=== PATIENT | male | born 1950 | race Caucasian/White ===

== ENCOUNTER 2020-08-29 12:29 | Emergency (ER) | payer MEDICARE ==
[2020-08-29] MEDS ORDERED: ATROPINE ABBOJECT 0.5 MG/5 ML SYRINGE IVP STA (13:02)
--- NOTE | 2020-08-29 13:02 | ED Physician Documentation ---
PD HPI CHEST PAIN - Stated complaint Stated Complaint: LOW HR - Chief complaint Chief Complaint: Cardiac - History obtained from History obtained from: Patient - Additional information Additional information: Early Thursday morning, 2 days ago he woke up and felt sweaty and a little short of breath. Subsequently had fatigue. The day prior he was hiking and doing everything without issue. He has a history of mild bradycardia but he noticed that his pulse was even lower than usual. He has not been had any chest pain but he does have fatigue and shortness of breath with exertion. He is not on an y rate lowering medications, his only prescriptions are atorvastatin and amlodipine. Review of Systems Ten Systems: 10 systems reviewed and negative Constitutional: reports: Fatigue. denies: Fever, Chills Cardiac: denies: Palpitations Respiratory: reports: Dyspnea. denies: Cough GI: denies: Abdominal Pain, Nausea, Vomiting PD PAST MEDICAL HISTORY - Allergies Allergies/Adverse Reactions: Allergies Allergy/AdvReac Type Severity Reaction Status Date / Time No Known Drug Allergies Allergy Verified 08/29/20 12:50 PD ED PE NORMAL - Vitals Vital signs reviewed: Yes - General General: Alert and oriented X 3, No acute distress - HEENT HEENT: PERRL, EOMI - Neck Neck: Supple, no meningeal sign, No bony TTP - Cardiac Cardiac: No murmur, Other (Very bradycardic) - Respiratory Respiratory: No respiratory distress, Clear bilaterally - Abdomen Abdomen: Non tender - Back Back: No CVA TTP, No spinal TTP - Derm Derm: Normal color, Warm and dry - Extremities Extremities: No edema, No calf tenderness / cord - Neuro Neuro: Alert and oriented X 3, Normal speech Results - Vitals Vitals: Vital Signs - 24 hr 08/29/20 08/29/20 08/29/20 12:42 13:00 13:13 Temperature 36.4 C L 36.8 C Heart Rate 31 L 31 L 32 L Respiratory 18 18 12 Rate Blood Pressure 148/70 H 155/73 H 152/70 H O2 Saturation 98 95 95 08/29/20 08/29/20 08/29/20 13:23 13:57 14:00 Temperature Heart Rate 30 L 30 L 30 L Respiratory 18 22 22 Rate Blood Pressure 129/72 141/73 H 141/73 H O2 Saturation 95 96 96 08/29/20 08/29/20 08/29/20 14:30 16:25 16:40 Temperature Heart Rate 28 L 75 37 L Respiratory 14 14 16 Rate Blood Pressure 134/93 H 130/70 126/63 O2 Saturation 99 97 96 08/29/20 08/29/20 17:00 17:30 Temperature Heart Rate 36 L 32 L Respiratory 18 18 Rate Blood Pressure 128/60 128/58 L O2 Saturation 93 94 Oxygen O2 Source Room air - EKG (time done) 1245 Rate: Rate (enter#) (31) Rhythm: Sinus bradycardia Intervals: Prolonged [place] Ischemia: ST depression 1713 Rate: Rate (enter#) (36) Rhythm: Other (complete AV block) Intervals: LBBB Computer interpretation: Agree with computer - Labs Labs: Laboratory Tests 08/29/20 08/29/20 08/29/20 12:51 12:51 12:51 WBC 8.7 RBC 5.29 Hgb 15.9 Hct 49.0 MCV 92.6 MCH 30.1 MCHC 32.4 RDW 13.2 Plt Count 203 MPV 11.7 H Neut # (Auto) 5.5 Lymph # (Auto) 2.5 [place] # (Auto) 0.7 Eos # (Auto) 0.0 Baso # (Auto) 0.0 Absolute Nucleated RBC 0.00 Nucleated RBC % 0.0 Sodium 142 Potassium 4.1 Chloride 106 Carbon Dioxide 25 Anion Gap 11.0 BUN 11 Creatinine 0.9 Estimated GFR (MDRD) 84 L Glucose 116 H Calcium 9.6 Total Bilirubin 1.8 H AST 22 ALT 33 Alkaline Phosphatase 71 Troponin I High Sens 31.6 H* B-Natriuretic Peptide Total Protein 8.0 Albumin 4.7 Globulin 3.3 Albumin/Globulin Ratio 1.4 Lipase 32 08/29/20 08/29/20 12:51 17:19 WBC RBC Hgb Hct MCV MCH MCHC RDW Plt Count MPV Neut # (Auto) Lymph # (Auto) [place] # (Auto) Eos # (Auto) Baso # (Auto) Absolute Nucleated RBC Nucleated RBC % Sodium Potassium Chloride Carbon Dioxide Anion Gap BUN Creatinine Estimated GFR (MDRD) Glucose Calcium Total Bilirubin AST ALT Alkaline Phosphatase Troponin I High Sens 26.0 H* B-Natriuretic Peptide 433 H Total Protein Albumin Globulin Albumin/Globulin Ratio Lipase - Rads (name of study) 1v chest Radiology: EMP read contemporaneously (Cardiomegaly without acute disease) PD MEDICAL DECISION MAKING - ED course ED course: 69-year-old gentleman presents with symptomatic bradycardia. Atropine briefly brought his heart rate up to 35 but then it settled back at 29-31. He is hemodynamically stable. Mentation is normal. Spoke with Dr. Saucedo at [facility] for transfer to a higher level of care. Dr. Saucedo called me, they couldn't find a bed at [facility]. The hospitalist at [facility] said he would accept but I needed to talk to their press loader first. Dr. Cano he was called at 3:11 PM. Spoke with the on-call press loader at [facility], Dr. Cano at 3:20 PM and he will see in consult but defers to the hospitalist for admit and [facility] was called back to arrange. Per Dr. Saucedo at [facility] he is excepted by Dr. Tan to [facility] and cobras were completed at 3:28 PM. Subsequently around 3:45 PM started developed significant pauses with about 6 to 8 seconds. He did become dizzy but not syncopal with these. Pacer pads were placed and a dopamine drip was begun. His heart rate responded up to about 40 with 10 mics per kilo per minute of dopamine. Notified there would be a delay to transfer because of lack of beds, reportedly there is a lack of beds up and down the [facility] corridor. Notified around 5:10 PM patient was feeling worse, nauseous and stewart. Another palmer EKG was ordered, it has changed a bit since the first 1, now complete heart block, but the rate is not too bad at 36. It was faxed to the press loader. Given the delays and potential for decompensation, I called the ER at [facility] and he was excepted there by Dr. Castañeda and cobras were completed. He will go via [facility] given the potential for hemodynamic decompensation and shock. - Critical Care Time(min): 40 Time Includes: Direct patient care, Review records, Reassess patient, Document care, Coordinate care, Medical consult, Family consult for tx dec Data interpretation: Labs, Pulse ox Procedures excluded from critical care time: EKG Departure - Departure Disposition: 02 Transfer Acute Care Hosp Clinical Impression: Symptomatic bradycardia Condition: Serious
[2020-08-29 13:05] LABS: BASOPHILS % (AUTO) 0.3 %; EOSINOPHILS % (AUTO) 0.2 %; HGB - HEMOGLOBIN 15.9 g/dL (14.0-18.0); LYMPHOCYTES # (AUTO) 2.5 10^3/uL (1.5-3.5); LYMPHOCYTES % (AUTO) 28.4 %; MEAN CORPUSCULAR HEMOGLOBIN 30.1 pg (27.0-31.0); MEAN CORPUSCULAR HGB CONC 32.4 g/dL (32.0-36.0); MEAN CORPUSCULAR VOLUME 92.6 fL (80.0-94.0); MEAN PLATELET VOLUME 11.7 fL (7.4-11.4); MONOCYTES # (AUTO) 0.7 10^3/uL (0.0-1.0); MONOCYTES % (AUTO) 7.9 %; NEUTROPHILS # (AUTO) 5.5 10^3/uL (1.5-6.6); PLT - PLATELET COUNT 203 10^3/uL (130-450); RED BLOOD COUNT 5.29 10^6/uL (4.70-6.10); RED CELL DISTRIBUTION WIDTH 13.2 % (12.0-15.0); WHITE BLOOD COUNT 8.7 x10^3/uL (4.8-10.8)
[2020-08-29] MEDS ORDERED: ATROPINE ABBOJECT 1 MG/10 ML SYRINGE IVP STA (13:05)
[2020-08-29] MEDS ORDERED: ATROPINE ABBOJECT 1 MG/10 ML SYRINGE IVP ONE (13:10)
[2020-08-29 13:19] LABS: ALBUMIN 4.7 g/dL (3.2-5.5); ALBUMIN/GLOBULIN RATIO 1.4 (1.0-2.2); BILIRUBIN,TOTAL 1.8 mg/dL (0.2-1.0); CALCIUM 9.6 mg/dL (8.5-10.3); CREATININE 0.9 mg/dL (0.6-1.2)
--- NOTE | 2020-08-29 13:36 | XRAY Report ---
PROCEDURE: Chest 1 View X-Ray INDICATIONS: Chest Pain TECHNIQUE: One view of the chest was acquired. COMPARISON: None FINDINGS: Surgical changes and devices: None. Lungs and pleura: No pleural effusions or pneumothorax. Lungs are clear. Mediastinum: Mediastinal contours appear normal. Heart is enlarged Bones and chest wall: No suspicious bony lesions. Overlying soft tissues appear unremarkable. IMPRESSION: 1. Cardiomegaly. 2. No acute cardiopulmonary disease process. Reviewed by: Abril Watkins MD, PhD on 08/29/2020 1:34 PM PST Approved by: Abril Watkins MD, PhD on 08/29/2020 1:34 PM PST Station ID: [id number]
[2020-08-29] MEDS ORDERED: DOPamine 800 MG/500 ML 800 MG/500 ML BAG IV STA (15:52)
[2020-08-29] MEDS ORDERED: PROMETHAZINE INJ 12.5 MG in SODIUM CHLORIDE 0.9% 50 ML IV STA (17:11)
[2020-08-29] MEDS ORDERED: PROMETHAZINE INJ 12.5 MG in SODIUM CHLORIDE 0.9% 100 ML IV STA (17:21)
[2020-08-29 17:44] VITALS: BP 128/58
== END 2020-08-29 18:25 | disposition short-term general hospital (02) ==
LOC: ED 12:29
DX: R00.1 Bradycardia, unspecified (principal); I44.2 Atrioventricular block, complete; I44.7 Left bundle-branch block, unspecified; I51.7 Cardiomegaly; R42 Dizziness and giddiness; R11.0 Nausea
CPT/HCPCS: 36415; 71045; 80053; 83690; 83880; 84484; 85025; 93005; 96374; 96375; 99291; J7040

== ENCOUNTER 2022-01-02 12:24 | Outpatient (CLI) | payer MEDICARE ==
[2022-01-02 18:22] LABS: BASOPHILS % (AUTO) 0.5 %; EOSINOPHILS % (AUTO) 0.5 %; HCT - HEMATOCRIT 45.3 % (42.0-52.0); HGB - HEMOGLOBIN 15.3 g/dL (14.0-18.0); LYMPHOCYTES # (AUTO) 2.1 10^3/uL (1.5-3.5); LYMPHOCYTES % (AUTO) 32.1 %; MEAN CORPUSCULAR HEMOGLOBIN 30.8 pg (27.0-31.0); MEAN CORPUSCULAR HGB CONC 33.8 g/dL (32.0-36.0); MEAN CORPUSCULAR VOLUME 91.1 fL (80.0-94.0); MEAN PLATELET VOLUME 12.1 fL (7.4-11.4); MONOCYTES # (AUTO) 0.6 10^3/uL (0.0-1.0); MONOCYTES % (AUTO) 9.3 %; NEUTROPHILS # (AUTO) 3.7 10^3/uL (1.5-6.6); NEUTROPHILS % (AUTO) 57.4 %; PLT - PLATELET COUNT 187 10^3/uL (130-450); RED BLOOD COUNT 4.97 10^6/uL (4.70-6.10); RED CELL DISTRIBUTION WIDTH 12.5 % (12.0-15.0); WHITE BLOOD COUNT 6.4 x10^3/uL (4.8-10.8)
[2022-01-02 18:30] LABS: ALBUMIN 4.7 g/dL (3.2-5.5); ALBUMIN/GLOBULIN RATIO 1.6 (1.0-2.2); BILIRUBIN,TOTAL 1.8 mg/dL (0.2-1.0); CALCIUM 9.4 mg/dL (8.5-10.3); CREATININE 0.7 mg/dL (0.6-1.2); POTASSIUM 4.1 mmol/L (3.5-5.0); TOTAL PROTEIN 7.6 g/dL (6.7-8.2)
== END 2022-01-02 23:59 | disposition home or self-care (01) ==
LOC: LAB.N 12:24
PROVIDERS: ATTEND Family Medicine
DX: R31.9 Hematuria, unspecified (principal)
CPT/HCPCS: 36415; 80053; 85025; 87086

== ENCOUNTER 2022-08-20 12:11 | Outpatient (CLI) | payer MEDICARE ==
--- NOTE | 2022-08-20 18:11 | XRAY Report ---
PROCEDURE: Foot 3 View BILAT INDICATIONS: BILATERAL FOOT PAIN TECHNIQUE: 3 views of each foot were acquired. COMPARISON: None FINDINGS: Bones: No acute fracture or dislocation. There is severe degenerative joint space loss, spurring, and subcortical sclerosis at the first metatarsophalangeal joints bilaterally, right slightly worse than left. There are hammertoe deformities 2 through 5 bilaterally. Periarticular erosion is seen at the fourth left tarsometatarsal articulation. Soft tissues: No tibiotalar joint effusion. Achilles tendons appear normal. IMPRESSION: 1. Symmetric bilateral first MTP joint degeneration. 2. Left fourth TMT joint erosion raising possibility of an inflammatory arthritic process. 3. Symmetric bilateral 2 through fifth hammertoe deformities. Reviewed by: Clarice Carcamo MD on 08/20/2022 5:09 PM [facility] Approved by: Clarice Carcamo MD on 08/20/2022 5:09 PM [facility] Station ID: [id number]
== END 2022-08-20 12:12 | disposition home or self-care (01) ==
LOC: DI 12:11
PROVIDERS: ATTEND Podiatrist
DX: M19.072 Primary osteoarthritis, left ankle and foot (principal); M19.071 Primary osteoarthritis, right ankle and foot; M20.42 Other hammer toe(s) (acquired), left foot; M20.41 Other hammer toe(s) (acquired), right foot

== ENCOUNTER 2023-02-06 15:51 | Emergency (ER) | payer MEDICARE ==
[2023-02-06] MEDS ORDERED: ASPIRIN 325 MG TABLET PO STA (16:15)
--- NOTE | 2023-02-06 16:17 | ED Physician Documentation ---
PD HPI CHEST PAIN - Stated complaint Stated Complaint: CHEST PAIN - Chief complaint Chief Complaint: Cardiac - History obtained from History obtained from: Patient - Additional information Additional information: 72-year-old gentleman with history of third-degree heart block necessitating a permanent pacemaker a few years ago. Around that time had an ischemic work-up with negative coronary angiogram per him. Over the last 5 days or so he has had some intermittent pain of the left pectoral area occasionally radiating to the left jaw with intermittent substernal chest pressure that is very mild. He says the symptoms get better if he exercises, specifically they all resolved yesterday while stacking firewood. He has had a little bit of shortness of breath and nausea with this. No sweats. PD PAST MEDICAL HISTORY - Past Medical History Cardiovascular: Hypertension, High cholesterol - Present Medications Home Medications: Ambulatory Orders Medication Instructions Recorded Confirmed Amlodipine Besylate [Norvasc] 10 mg PO DAILY 02/06/23 02/06/23 Atorvastatin Calcium 40 mg PO DAILY 02/06/23 02/06/23 Gabapentin [Neurontin] 300 mg PO BID 02/06/23 02/06/23 Multivitamin 1 each PO DAILY 02/06/23 02/06/23 Omeprazole Magnesium 20 mg PO DAILY 02/06/23 02/06/23 - Allergies Allergies/Adverse Reactions: Allergies Allergy/AdvReac Type Severity Reaction Status Date / Time No Known Drug Allergies Allergy Verified 02/06/23 15:55 - Social History Does the pt smoke?: No Smoking Status: Never smoker Does the pt drink ETOH?: Yes Does the pt have substance abuse?: No - Immunizations Immunizations are current?: Yes PD ED PE NORMAL - Vitals Vital signs reviewed: Yes - General General: Alert and oriented X 3, No acute distress - Cardiac Cardiac: RRR, No murmur - Respiratory Respiratory: No respiratory distress, Clear bilaterally - Abdomen Abdomen: Non tender - Extremities Extremities: No edema, No calf tenderness / cord - Neuro Neuro: Alert and oriented X 3, Normal speech Results - Vitals Vitals: Vital Signs - 24 hr 02/06/23 02/06/23 02/06/23 15:55 16:23 16:41 Temperature 36.5 C Heart Rate 71 68 65 Respiratory 16 16 18 Rate Blood Pressure 130/100 H 139/85 H 127/85 H O2 Saturation 98 99 97 Oxygen O2 Source Room air - EKG (time done) 1604 EKG releavant findings:: EKG personally interpreted by author of this note. Relevant findings are: Rate: Rate (enter#) (65) Rhythm: NSR [place]: Normal Intervals: Prolonged [place], RBBB, Other (Left anterior fascicular block) QRS: Normal Ischemia: Normal ST segments - Labs Labs: Laboratory Tests 02/06/23 02/06/23 02/06/23 16:15 16:15 16:15 WBC 7.3 RBC 5.10 Hgb 15.4 Hct 46.1 MCV 90.4 MCH 30.2 MCHC 33.4 RDW 12.4 Plt Count 167 MPV 11.1 Neut # (Auto) 4.2 Lymph # (Auto) 2.4 [place] # (Auto) 0.7 Eos # (Auto) 0.0 Baso # (Auto) 0.0 Absolute Nucleated RBC 0.00 Nucleated RBC % 0.0 Sodium 139 Potassium 3.9 Chloride 104 Carbon Dioxide 26 Anion Gap 9.0 BUN 12 Creatinine 0.7 Estimated GFR (MDRD) 111 Glucose 125 H Calcium 9.0 Total Bilirubin 1.4 H AST 18 ALT 25 Alkaline Phosphatase 62 Troponin I High Sens 8.9 Total Protein 7.0 Albumin 4.2 Globulin 2.8 Albumin/Globulin Ratio 1.5 Lipase 35 - Rads (name of study) Single view chest x-ray is unremarkable/normal Relevant Findings:: Final report received, EMP independent interpretation of test PD Medical Decision Making - ED course ED course: 72-year-old gentleman with 5 days of atypical chest pain, better with exertion which is very reassuring. CBC reviewed and normal. CMP reviewed and unremarkable. Troponin normal/negative. EKG without ischemic findings. Nothing in the history or physical to suggest dissection, PE/thromboembolic disease, pneumonia. Departure - Departure Disposition: 01 Home, Self Care Clinical Impression: Atypical chest pain Condition: Good Record reviewed to determine appropriate education?: Yes Instructions: ED Chest Pain Atypical Unkn Cause Comments: Call your tire curer on Thursday to arrange for follow-up, return for new or worsening symptoms. Baby aspirin a day as discussed starting tomorrow until tire curer advises you otherwise.
[2023-02-06 16:20] LABS: BASOPHILS % (AUTO) 0.4 %; EOSINOPHILS % (AUTO) 0.4 %; HCT - HEMATOCRIT 46.1 % (42.0-52.0); HGB - HEMOGLOBIN 15.4 g/dL (14.0-18.0); LYMPHOCYTES # (AUTO) 2.4 10^3/uL (1.5-3.5); LYMPHOCYTES % (AUTO) 32.8 %; MEAN CORPUSCULAR HEMOGLOBIN 30.2 pg (27.0-31.0); MEAN CORPUSCULAR HGB CONC 33.4 g/dL (32.0-36.0); MEAN CORPUSCULAR VOLUME 90.4 fL (80.0-94.0); MEAN PLATELET VOLUME 11.1 fL (7.4-11.4); MONOCYTES # (AUTO) 0.7 10^3/uL (0.0-1.0); MONOCYTES % (AUTO) 8.9 %; NEUTROPHILS # (AUTO) 4.2 10^3/uL (1.5-6.6); NEUTROPHILS % (AUTO) 57.2 %; PLT - PLATELET COUNT 167 10^3/uL (130-450); RED CELL DISTRIBUTION WIDTH 12.4 % (12.0-15.0); WHITE BLOOD COUNT 7.3 x10^3/uL (4.8-10.8)
--- NOTE | 2023-02-06 16:30 | XRAY Report ---
PROCEDURE: Chest 1 View X-Ray INDICATIONS: Chest pain TECHNIQUE: One view of the chest was acquired. COMPARISON: 08/29/2020. FINDINGS: Surgical changes and devices: None. Lungs and pleura: No pleural effusions or pneumothorax. Lungs are clear. Mediastinum: Mediastinal contours appear normal. Cardiomegaly Bones and chest wall: No suspicious bony lesions. Overlying soft tissues appear unremarkable. IMPRESSION: Cardiomegaly. No acute cardiopulmonary process. Reviewed by: Nicholas Wheeler MD on 02/06/2023 4:29 PM PDT Approved by: Nicholas Wheeler MD on 02/06/2023 4:29 PM PDT Station ID: [id number]
[2023-02-06 16:35] LABS: ALBUMIN 4.2 g/dL (3.2-5.5); ALBUMIN/GLOBULIN RATIO 1.5 (1.0-2.2); BILIRUBIN,TOTAL 1.4 mg/dL (0.2-1.0); CREATININE 0.7 mg/dL (0.6-1.2); POTASSIUM 3.9 mmol/L (3.5-5.0)
[2023-02-06 17:07] VITALS: BP 132/90
== END 2023-02-06 17:10 | disposition home or self-care (01) ==
LOC: ED 15:51
DX: R07.89 Other chest pain (principal)
CPT/HCPCS: 36415; 71045; 80053; 83690; 84484; 85025; 93005; 99283; 99284; A9270